=== PATIENT | female | born 2000 | race Caucasian/White ===

== ENCOUNTER 2020-02-09 06:58 | Inpatient (IN) ==
[2020-02-09] MEDS: LACTATED RINGERS 1,000 ML IV SCH ×2 (07:25→13:47)
[2020-02-09] MEDS ORDERED: MEPERIDINE 50 MG/1 ML VIAL IV PRN (07:56)
[2020-02-09] MEDS ORDERED: ONDANSETRON 4 MG/2 ML VIAL IV PRN (07:56)
[2020-02-09] MEDS ORDERED: BUTORPHANOL 2 MG/ML VIAL IV PRN (07:56)
[2020-02-09 08:06] LABS: Basophils % 0.3 % (0.0-0.8); Eosinophils # 0.1 10*3/uL (0.0-0.87); Eosinophils % 1.1 % (0.00-10.9); Hematocrit 34.1 VOL% (35.7-47.0); Hemoglobin 11.3 GM/DL (12.0-16.0); Immature Granulocytes % 0.6 %; Immature Granulocytes Absolute 0.07 #; Lymphocytes # 1.8 10*3/uL (1.4-4.0); Lymphocytes % 14.3 % (21.3-54.2); Mean Corpuscular HGB Conc 33.1 GM/DL (32-36); Mean Platelet Volume 12.2 FL (9.6-12.0); Monocytes % 7.7 % (1.7-12.7); Platelet Count 195 T/CUMM (130-400); Red Blood Count 3.83 MC/CUMM (3.8-5.5); Red Cell Distribution Width 14.6 % (9.3-17.3); White Blood Count 12.3 T/CUMM (4-12)
[2020-02-09] MEDS: OXYTOCIN/LR 20 UNIT/1,000 ML BAG IV SCH ×2 (08:19→22:04)
[2020-02-09 08:39] LABS: Albumin 2.5 G/DL (3.4-5.0); Bilirubin,Total 0.4 MG/DL (0.2-1.0); Osmolality,Calculated 273.7 MOS/KG (273-304); Total Protein 6.8 G/DL (6.4-8.3); Uric Acid 4.4 MG/DL (2.6-6.0)
[2020-02-09] MEDS ORDERED: LACTATED RINGERS 1,000 ML IV ONE (11:57)
[2020-02-09] MEDS ORDERED: CITRIC ACID/SODIUM CITRATE 30 ML UDCUP PO ONE (11:57)
[2020-02-09] MEDS ORDERED: FAMOTIDINE 20 MG/2 ML VIAL IV ONE (11:57)
[2020-02-09] MEDS ORDERED: diphenhydrAMINE 50 MG/1 ML VIAL IV PRN ×2 (11:58)
[2020-02-09] MEDS ORDERED: ePHEDrine 50 MG/ML VIAL IV PRN (11:58)
[2020-02-09] MEDS ORDERED: PROMETHAZINE 25 MG/1 ML VIAL IM ONE (11:58)
[2020-02-09] MEDS ORDERED: hydrOXYzine HCL 25 MG/1 ML VIAL IM PRN (11:58)
[2020-02-09] MEDS ORDERED: NALOXONE 0.4 MG/ML VIAL IV PRN (11:58)
[2020-02-09] MEDS ORDERED: fentaNYL 2 MCG/ROPIV 0.2% EPID 100 ML EPIDURAL SCH (12:00)
[2020-02-09 14:18] LABS: Bilirubin,Urine Negative (Negative); Blood, Urine Negative (Negative); Glucose,Urine (UA) Negative (Negative); Ketones,Urine Negative (Negative); Nitrite,Urine Negative (Negative); Protein,Urine Negative; RBC,Urine 2 /HPF (0-4); Urine Appearance CLEAR (Clear); Urine Color Yellow (Yellow); Urine Specific Gravity 1.011 (1.001-1.035); Urine Urobilinogen < 2.0 EU/DL (0.2-1.0); WBC,Urine 1 /HPF (0-6)
[2020-02-09] MEDS ORDERED: TRANEXAMIC ACID 1,000 MG/10 ML VIAL ONE (19:30)
[2020-02-09] MEDS ORDERED: METHYLERGONOVINE 0.2 MG/1 ML AMP ONE (19:30)
[2020-02-09] MEDS ORDERED: OXYTOCIN/LR 20 UNIT/1,000 ML BAG IV ONE ×2 (19:30→23:54)
[2020-02-09] MEDS ORDERED: CARBOPROST TROMETHAMINE 250 MCG/ML AMP IM ONE (19:30)
[2020-02-09] MEDS ORDERED: miSOPROStoL 200 MCG TABLET ONE (19:30)
[2020-02-09 21:58] LABS: Cord Venous Blood HCO3 20.5 MMOL/L; Cord Venous Blood PCO2 35.9 MMHG; Cord Venous Blood PO2 45.8 MMHG
[2020-02-09] MEDS ORDERED: LANOLIN 50% CREAM 0.3 OZ TUBE TOP PRN (23:54)
[2020-02-09] MEDS ORDERED: RHO(D) IMMUNE GLOBULIN 300 MCG SYRINGE IM ONE (23:54)
[2020-02-09] MEDS ORDERED: MEASLES/MUMPS/RUBELLA VACCINE 0.5 ML VIAL SUBCUT ONE (23:54)
[2020-02-09] MEDS ORDERED: WITCH HAZEL PADS 100/JAR TOP PRN (23:54)
[2020-02-09] MEDS ORDERED: BISACODYL 10 MG SUPP RECTAL PRN (23:54)
[2020-02-09] MEDS ORDERED: oxyCODONE/ACETAMINOPHEN 5-325 MG TABLET PO PRN (23:54)
[2020-02-09] MEDS ORDERED: ACETAMINOPHEN 325 MG TABLET PO PRN (23:54)
[2020-02-09] MEDS ORDERED: DIPH/TET/ACEL PERT BOOSTER VACCINE 0.5 ML VIAL IM ONE (23:54)
[2020-02-09] MEDS ORDERED: HYDROCORTISONE 2.5% RECTAL CREAM 30 GM TUBE TOP PRN (23:54)
[2020-02-09] MEDS ORDERED: BENZOCAINE 20%/MENTHOL 0.5% SPRAY 56 GM CAN TOP PRN (23:54)
[2020-02-10] MEDS: oxyCODONE/ACETAMINOPHEN 5-325 MG TABLET PO PRN ×3 (00:18→18:35)
[2020-02-10] MEDS: IBUPROFEN 800 MG TABLET PO PRN ×4 (00:19→18:35)
[2020-02-10 05:53] LABS: Basophils % 0.2 % (0.0-0.8); Eosinophils # 0.1 10*3/uL (0.0-0.87); Eosinophils % 0.3 % (0.00-10.9); Hematocrit 28.9 VOL% (35.7-47.0); Hemoglobin 9.7 GM/DL (12.0-16.0); Immature Granulocytes % 0.6 %; Immature Granulocytes Absolute 0.09 #; Lymphocytes # 1.5 10*3/uL (1.4-4.0); Lymphocytes % 10.6 % (21.3-54.2); Mean Corpuscular HGB Conc 33.6 GM/DL (32-36); Mean Corpuscular Volume 88.1 FL (87-102); Mean Platelet Volume 12.4 FL (9.6-12.0); Monocytes % 6.1 % (1.7-12.7); Neutrophils % 82.2 % (38.7-73.9); Platelet Count 161 T/CUMM (130-400); Red Blood Count 3.28 MC/CUMM (3.8-5.5); Red Cell Distribution Width 14.6 % (9.3-17.3); White Blood Count 14.6 T/CUMM (4-12)
[2020-02-10] MEDS: DOCUSATE SODIUM 100 MG CAPSULE PO SCH ×2 (08:10→20:17)
[2020-02-10] MEDS: FERROUS SULFATE 325 MG TABLET PO SCH ×2 (10:52→20:17)
[2020-02-11] MEDS: IBUPROFEN 800 MG TABLET PO PRN ×2 (02:29→07:39)
[2020-02-11] MEDS: oxyCODONE/ACETAMINOPHEN 5-325 MG TABLET PO PRN ×2 (02:30→07:40)
[2020-02-11 07:22] VITALS: BP 119/69
[2020-02-11] MEDS ORDERED: INFLUENZA VIRUS VACCINE 0.5 ML SYRINGE IM ONE ×2 (08:24→12:00)
[2020-02-11] MEDS: FERROUS SULFATE 325 MG TABLET PO SCH (08:30)
[2020-02-11] MEDS: DOCUSATE SODIUM 100 MG CAPSULE PO SCH (08:30)
== END 2020-02-11 12:40 | disposition home or self-care (01) | DRG 807 ==
LOC: N.LDOUT 06:58 → N.LD 06:59 → N.OB 02-10 03:05
PROVIDERS: ADMIT Obstetrics & Gynecology; ATTEND Obstetrics & Gynecology

== ENCOUNTER 2020-07-09 10:34 | Inpatient (IN) ==
[2020-07-09] MEDS ORDERED: VANCOMYCIN INJ 1,000 MG in SODIUM CHLORIDE 0.9% 250 ML IV STA ×2 (11:12→11:16)
[2020-07-09] MEDS ORDERED: HYDROmorphone 2 MG/1 ML VIAL IV STA ×2 (11:12→13:26)
[2020-07-09] MEDS ORDERED: SODIUM CHLORIDE 0.9% 1,000 ML IV STA (11:12)
[2020-07-09] MEDS ORDERED: ONDANSETRON 4 MG/2 ML VIAL IV STA (11:13)
[2020-07-09 11:57] LABS: Basophils # 0.1 10*3/uL (0.0-0.2); Basophils % 0.5 % (0.0-0.8); Eosinophils # 0.2 10*3/uL (0.0-0.87); Eosinophils % 1.3 % (0.00-10.9); Immature Granulocytes % 0.5 %; Immature Granulocytes Absolute 0.06 #; Lymphocytes # 1.8 10*3/uL (1.4-4.0); Lymphocytes % 15.8 % (21.3-54.2); Mean Corpuscular HGB Conc 32.6 GM/DL (32-36); Mean Corpuscular Volume 85.1 FL (87-102); Mean Platelet Volume 11.2 FL (9.6-12.0); Monocytes % 8.1 % (1.7-12.7); Neutrophils % 73.8 % (38.7-73.9); Platelet Count 201 T/CUMM (130-400); Red Blood Count 5.05 MC/CUMM (3.8-5.5); Red Cell Distribution Width 14.6 % (9.3-17.3); White Blood Count 11.2 T/CUMM (4-12)
[2020-07-09 12:12] LABS: Calcium 9.5 MG/DL (8.5-10.1); Osmolality,Calculated 271.7 MOS/KG (273-304); Potassium 3.5 MMOL/L (3.5-5.1)
[2020-07-09] MEDS ORDERED: VANCOMYCIN 1,000 MG VIAL ONE (12:23)
[2020-07-09] MEDS ORDERED: LIDOCAINE 1%/EPI INJ 20 ML VIAL ONE (12:35)
[2020-07-09] MEDS ORDERED: cefTRIAXone 1,000 MG in SODIUM CHLORIDE 0.9% 100 ML IV SCH (14:30)
[2020-07-09] MEDS ORDERED: DOCUSATE SODIUM 100 MG CAPSULE PO PRN (15:31)
[2020-07-09] MEDS ORDERED: GLUCAGON 1 MG VIAL IM PRN (15:31)
[2020-07-09] MEDS ORDERED: ONDANSETRON 4 MG/2 ML VIAL IV PRN (15:31)
[2020-07-09] MEDS ORDERED: ACETAMINOPHEN 325 MG TABLET PO PRN (15:31)
[2020-07-09] MEDS ORDERED: DEXTROSE 50% 25 GM/50 ML VIAL IV PRN (15:31)
[2020-07-09] MEDS ORDERED: HydrOXYzine PAMOATE 25 MG CAPSULE PO PRN (15:44)
[2020-07-09 15:59] LABS: Thyroid Stimulating Hormone 1.21 uIU/ml (0.358-3.74); VLDL CHOLESTEROL 12.4 MG/DL
[2020-07-09] MEDS: ENOXAPARIN 40 MG/0.4 ML SYRINGE SUBCUT SCH (18:14)
[2020-07-09] MEDS: FERROUS SULFATE 325 MG TABLET PO SCH (20:07)
[2020-07-10 06:34] LABS: Basophils # 0.1 10*3/uL (0.0-0.2); Basophils % 0.7 % (0.0-0.8); Eosinophils # 0.2 10*3/uL (0.0-0.87); Eosinophils % 2.2 % (0.00-10.9); Hematocrit 40.9 VOL% (35.7-47.0); Hemoglobin 12.9 GM/DL (12.0-16.0); Immature Granulocytes % 0.6 %; Immature Granulocytes Absolute 0.06 #; Lymphocytes # 2.3 10*3/uL (1.4-4.0); Lymphocytes % 22.3 % (21.3-54.2); Mean Corpuscular HGB Conc 31.5 GM/DL (32-36); Mean Platelet Volume 11.6 FL (9.6-12.0); Monocytes % 9.9 % (1.7-12.7); Neutrophils % 64.3 % (38.7-73.9); Platelet Count 212 T/CUMM (130-400); Red Cell Distribution Width 14.4 % (9.3-17.3); White Blood Count 10.4 T/CUMM (4-12)
[2020-07-10 07:02] LABS: Calcium 9.3 MG/DL (8.5-10.1); Osmolality,Calculated 274.5 MOS/KG (273-304); Potassium 3.7 MMOL/L (3.5-5.1)
[2020-07-10] MEDS: FERROUS SULFATE 325 MG TABLET PO SCH ×2 (08:09→20:13)
[2020-07-10] MEDS: VANCOMYCIN INJ 1,000 MG in SODIUM CHLORIDE 0.9% 250 ML IV SCH (16:00)
[2020-07-10] MEDS: MORPHINE 4 MG/1 ML VIAL IV PRN (17:15)
[2020-07-10] MEDS: ENOXAPARIN 40 MG/0.4 ML SYRINGE SUBCUT SCH (17:59)
[2020-07-11] MEDS: VANCOMYCIN INJ 1,000 MG in SODIUM CHLORIDE 0.9% 250 ML IV SCH ×2 (01:50→14:55)
[2020-07-11 05:49] LABS: Basophils # 0.1 10*3/uL (0.0-0.2); Basophils % 0.8 % (0.0-0.8); Eosinophils # 0.3 10*3/uL (0.0-0.87); Eosinophils % 3.6 % (0.00-10.9); Hemoglobin 12.3 GM/DL (12.0-16.0); Immature Granulocytes % 0.3 %; Immature Granulocytes Absolute 0.02 #; Lymphocytes # 2.1 10*3/uL (1.4-4.0); Lymphocytes % 28.7 % (21.3-54.2); Mean Corpuscular HGB Conc 31.5 GM/DL (32-36); Mean Corpuscular Volume 87.8 FL (87-102); Mean Platelet Volume 11.6 FL (9.6-12.0); Monocytes % 9.5 % (1.7-12.7); Neutrophils % 57.1 % (38.7-73.9); Platelet Count 220 T/CUMM (130-400); Red Blood Count 4.44 MC/CUMM (3.8-5.5); Red Cell Distribution Width 14.4 % (9.3-17.3); White Blood Count 7.3 T/CUMM (4-12)
[2020-07-11 06:12] LABS: Calcium 9.2 MG/DL (8.5-10.1); Osmolality,Calculated 279.3 MOS/KG (273-304); Potassium 4.3 MMOL/L (3.5-5.1)
[2020-07-11 06:24] LABS: Eosinophils 2 % (0-10); Hypochromasia 1+; Lymphocytes 34 % (20-55); Microcytosis 1+; Ovalocytes Slight; Platelet Estimate Adequate; Segmented Neutrophils 54 % (50-85); Total Cells Counted 100
[2020-07-11] MEDS: FERROUS SULFATE 325 MG TABLET PO SCH ×2 (08:43→20:38)
[2020-07-11] MEDS: ENOXAPARIN 40 MG/0.4 ML SYRINGE SUBCUT SCH ×2 (16:04→17:13)
[2020-07-11] MEDS: MORPHINE 4 MG/1 ML VIAL IV PRN ×2 (16:06→17:05)
[2020-07-12] MEDS: MORPHINE 4 MG/1 ML VIAL IV PRN ×2 (00:33→20:51)
[2020-07-12] MEDS: VANCOMYCIN INJ 1,000 MG in SODIUM CHLORIDE 0.9% 250 ML IV SCH ×2 (02:10→14:17)
[2020-07-12 05:13] LABS: Basophils # 0.1 10*3/uL (0.0-0.2); Eosinophils # 0.4 10*3/uL (0.0-0.87); Eosinophils % 5.3 % (0.00-10.9); Hematocrit 38.9 VOL% (35.7-47.0); Hemoglobin 12.5 GM/DL (12.0-16.0); Immature Granulocytes % 0.3 %; Immature Granulocytes Absolute 0.02 #; Lymphocytes # 2.3 10*3/uL (1.4-4.0); Lymphocytes % 32.5 % (21.3-54.2); Mean Corpuscular HGB Conc 32.1 GM/DL (32-36); Mean Corpuscular Volume 86.4 FL (87-102); Mean Platelet Volume 10.6 FL (9.6-12.0); Monocytes % 8.6 % (1.7-12.7); Neutrophils % 52.3 % (38.7-73.9); Platelet Count 253 T/CUMM (130-400); Red Cell Distribution Width 14.1 % (9.3-17.3)
[2020-07-12 05:37] LABS: Calcium 8.9 MG/DL (8.5-10.1); Osmolality,Calculated 275.5 MOS/KG (273-304); Potassium 4.2 MMOL/L (3.5-5.1)
[2020-07-12 05:40] LABS: Eosinophils 6 % (0-10); Hypochromasia Slight; Lymphocytes 43 % (20-55); Microcytosis Slight; Platelet Estimate Adequate; Segmented Neutrophils 47 % (50-85); Total Cells Counted 100
[2020-07-12] MEDS: FERROUS SULFATE 325 MG TABLET PO SCH ×2 (08:49→20:51)
[2020-07-12] MEDS: ENOXAPARIN 40 MG/0.4 ML SYRINGE SUBCUT SCH (18:07)
[2020-07-13] MEDS: VANCOMYCIN INJ 1,000 MG in SODIUM CHLORIDE 0.9% 250 ML IV SCH ×2 (01:55→13:04)
[2020-07-13 06:48] LABS: Basophils # 0.1 10*3/uL (0.0-0.2); Basophils % 0.8 % (0.0-0.8); Eosinophils # 0.3 10*3/uL (0.0-0.87); Eosinophils % 5.5 % (0.00-10.9); Hematocrit 39.7 VOL% (35.7-47.0); Hemoglobin 12.2 GM/DL (12.0-16.0); Immature Granulocytes % 0.3 %; Immature Granulocytes Absolute 0.02 #; Lymphocytes % 32.3 % (21.3-54.2); Mean Corpuscular HGB Conc 30.7 GM/DL (32-36); Mean Corpuscular Volume 88.4 FL (87-102); Monocytes % 8.7 % (1.7-12.7); Neutrophils % 52.4 % (38.7-73.9); Platelet Count 261 T/CUMM (130-400); Red Blood Count 4.49 MC/CUMM (3.8-5.5); White Blood Count 6.2 T/CUMM (4-12)
[2020-07-13 07:04] LABS: Osmolality,Calculated 279.3 MOS/KG (273-304); Potassium 3.6 MMOL/L (3.5-5.1)
[2020-07-13 07:09] LABS: Hypochromasia Slight; Microcytosis Slight; Platelet Estimate Adequate
[2020-07-13 08:08] LABS: Sedimentation Rate-Westergren 41 MM/HR (0-20)
[2020-07-13] MEDS: FERROUS SULFATE 325 MG TABLET PO SCH (09:11)
[2020-07-13] MEDS: MORPHINE 4 MG/1 ML VIAL IV PRN (10:42)
[2020-07-13 15:34] VITALS: BP 110/54
[2020-07-15 06:45] LABS: Acinetobacter baumanii Not Detected (NotDetected); Bacteroides fragilis Not Detected (NotDetected); Candida auris Not Detected (NotDetected); Chlamydia trachomatis Not Detected (NotDetected); Class A beta Lactamase Not Detected (NotDetected); Cytomegalovirus/HHV5 Not Detected (NotDetected); Gardnerella vaginalis Not Detected (NotDetected); Haemophilus ducreyi Not Detected (NotDetected); Herpes simplex virus 1 & 2 Not Detected (NotDetected); Neiserria gonorrhoeae Not Detected (NotDetected); Pseudomonas aeruginosa Not Detected (NotDetected); Serratia marcescens Not Detected (NotDetected); Staphylococcus epidermidis Not Detected (NotDetected); Streptococcus agalactiae Not Detected (NotDetected); Streptococcus pyogenes Not Detected (NotDetected); Trichomonas vaginalis DETECTED (NotDetected); mecA-Methicillin Resistance Ge Not Detected (NotDetected)
== END 2020-07-13 17:05 | disposition home or self-care (01) | DRG 501 ==
LOC: N.ED 10:34 → N.EDINP 10:34 → SUATTDRO 14:11 → N.3E 15:35
PROVIDERS: ADMIT Internal Medicine; ATTEND Internal Medicine